=== PATIENT | male | born 2000 | race Hispanic/Latino ===

== ENCOUNTER → 2023-06-30 | Emergency (ER) | payer BC ==
[~2023-06-30] MED LIST: FAMOTIDINE 20 MG/2 ML VIAL IV ONE; KETOROLAC 30 MG/ML INJ ONE; NA CHLORIDE 0.9% 1,000 ML ONE; ONDANSETRON 4 MG/2 ML VIAL ONE
--- OUTSIDE RECORDS SUMMARY | 2023-06-30 18:09 | XMS REPORT | Continuity of Care Document ---
Author Name Unknown Address [address] [facility] [address] [place] [address] [facility] Address [address] [facility]. 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
--- NOTE | 2023-06-30 19:11 | RAD REPORT ---
EXAM DESCRIPTION: US - Abdomen Exam Limited - 06/30/2023 6:57 pm CLINICAL HISTORY: Abdominal pain. COMPARISON: None. FINDINGS: The gallbladder wall is not thickened. A gallstone is not seen. The biliary tree is normal caliber. The liver has an increased echotexture presumably fatty infiltration IMPRESSION: Unremarkable gallbladder ultrasound.
[2023-06-30 19:54] LABS: Absolute Lymphocytes (CBC) 2.1 K/uL (0.7-4.9); Hematocrit 42.7 % (39.6-49.0); Lymphocytes % 49.4 % (15.3-44.8); MCV 88.8 fL (80-100); MPV 8.7 fL (7.6-11.3); Platelets 209 thou/uL (152-406)
[2023-06-30 20:12] LABS: Albumin 3.5 g/dL (3.4-5.0); Bilirubin Total 0.3 mg/dL (0.2-1.0); Potassium 3.6 mEq/L (3.5-5.1); Protein, Total 7.5 g/dL (6.4-8.2)
--- NOTE | 2023-06-30 20:35 | EDPHYS ---
Physician Documentation [facility] Name: Neftali Min Age: 23 yrs Sex: Male : 2000 Arrival Date: 06/30/2023 Time: 18:07 Bed 9 Private MD: ED Physician Khalif Alvarez HPI: 06/30 20:33 This 23 yrs old Male presents to ER via Ambulatory with complaints of Fever, kb Vomiting. 20:33 Patient is a 23-year-old male with upper abdominal pain, nausea, vomiting x 2 today and kb subjective fever for 3 days. Denies diarrhea.. Historical: - Allergies: 18:29 No Known Allergies; bp - Home Meds: 18:29 None [Active]; bp - PMHx: 18:29 None; bp - Immunization history:: Adult Immunizations up to date. - Social history:: Smoking status: Patient denies any tobacco usage or history of. ROS: 20:33 Respiratory: Negative for shortness of breath, cough, wheezing, and pleuritic chest kb pain, 20:33 Constitutional: Positive for fever, 20:33 Abdomen/GI: Positive for abdominal pain, nausea and vomiting, Negative for diarrhea, 20:33 All other systems are negative, Exam: 20:33 Constitutional: This is a well developed, well nourished patient who is awake, alert, kb and in no acute distress. Head/Face: Normocephalic, atraumatic. ENT: Moist Mucous membranes Cardiovascular: Regular rate Respiratory: Respirations even and unlabored. No increased work of breathing. Talking in full sentences Skin: Warm, dry with normal turgor. Normal color. MS/ Extremity: Pulses equal, no cyanosis. Neurovascular intact. Full, normal range of motion. Neuro: Awake and alert, GCS 15, oriented to person, place, time, and situation. Moves all extremities. Normal gait. 20:33 Abdomen/GI: Inspection: abdomen appears normal, Bowel sounds: normal, Palpation: soft, in all quadrants, mild abdominal tenderness, in the right upper quadrant and left upper quadrant, Vital Signs: 18:28 BP 138 / 71; Pulse 86; Resp 16; Temp 98.2; Pulse Ox 99% ; Weight 113.4 kg; Height 5 ft. bp 5 in. ; 20:30 BP 140 / 75; Pulse 82; Resp 17 S; Pulse Ox 99% on R/A; jw7 18:28 Body Mass Index 41.60 (113.40 kg, 165.1 cm) bp MDM: 18:11 Patient medically screened. kb 20:33 Differential diagnosis: Cholecystitis, cholelithiasis, GERD, pancreatitis. Data kb reviewed: vital signs, nurses notes. Counseling: I had a detailed discussion with the patient and/or guardian regarding the historical points, exam findings, and any diagnostic results supporting the discharge/admit diagnosis, lab results, radiology results, the need for outpatient follow up, a family practitioner, a post framer, to return to the emergency department if symptoms worsen or persist or if there are any questions or concerns that arise at home. 06/30 18:35 Order name: CBC with Diff; Complete Time: 20:16 kb 06/30 18:35 Order name: CMP; Complete Time: 20:16 kb 06/30 18:35 Order name: Lipase; Complete Time: 20:16 kb 06/30 18:35 Order name: US Abdomen Limited; Complete Time: 19:13 kb 06/30 18:35 Order name: IV Saline Lock; Complete Time: 20:11 kb 06/30 18:35 Order name: Labs collected and sent; Complete Time: 20:11 kb Administered Medications: 20:11 Drug: NS 0.9% IV 1000 ml IV at 1 bolus Per protocol; 1000 mL bolus Route: IV; Rate: 1 jw7 bolus; Site: right antecubital; 20:54 Follow up: Response: No adverse reaction; IV Status: Completed infusion; IV Intake: jw7 1000ml 20:11 Drug: Famotidine IVP 20 mg IVP once; dilute with 10 mL 0.9% NaCl; give over 2 minutes jw7 Route: IVP; Site: right antecubital; 20:54 Follow up: Response: No adverse reaction; Marked relief of symptoms jw7 20:11 Drug: TORadol - Ketorolac IVP 15 mg IVP once Route: IVP; Site: right antecubital; jw7 20:55 Follow up: Response: No adverse reaction; Marked relief of symptoms jw7 20:11 Drug: Ondansetron IVP 4 mg IVP once; over 2 minutes Route: IVP; Site: right antecubital;jw7 20:54 Follow up: Response: No adverse reaction; Marked relief of symptoms jw7 Disposition: 20:24 I was immediately available on-site in the Emergency Department for consultation in the ms3 care of the patient. Disposition Summary: 06/30/23 20:35 Discharge Ordered Notes: Location: Home kb Condition: Stable kb Diagnosis - Upper abdominal pain, unspecified kb - Abnormal results of liver function studies kb Followup: kb - With: Emergency Department - When: As needed - Reason: Worsening of condition Followup: kb - With: Private Physician - When: 2 - 3 days - Reason: Recheck today's complaints, Continuance of care, Re-evaluation by your physician Discharge Instructions: - Discharge Summary Sheet kb - Gastroesophageal Reflux Disease, Adult kb - Abdominal Pain, Adult, [id number] kb Forms: - Medication Reconciliation Form kb - Thank You Letter kb - Antibiotic Education kb - Prescription Opioid Use kb - Patient Portal Instructions kb - Leadership Thank You Letter kb - Work release form jw7 Prescriptions: - Protonix 40 mg Oral Tablet - take 1 tablet ORAL route once daily; 30 tablet; Refills: 0, Product Selection kb Permitted Signatures: Dispatcher [employer] Trice Cuellar, GUEST RELATIONS EXECUTIVE-C GUEST RELATIONS EXECUTIVE-Rickie Duran, RN RN Khalif Hardwick, DO DO ms3 Annabel Christy RN RN jw7
--- NOTE | 2023-06-30 20:35 | ER ---
Nurse's Notes [facility] Name: Neftali Min Age: 23 yrs Sex: Male : 2000 Arrival Date: 06/30/2023 Time: 18:07 Bed 9 Private MD: Diagnosis: Upper abdominal pain, unspecified;Abnormal results of liver function studies Presentation: 06/30 18:28 Chief complaint: Patient states: 2 DAYS ABDOMINAL PAIN AND POTTER, FEVER Y/D. Coronavirus bp screen: At this time, the client does not indicate any symptoms associated with coronavirus-19. Ebola Screen: No symptoms or risks identified at this time. Initial Sepsis Screen: Does the patient meet any 2 criteria? No. Patient's initial sepsis screen is negative. Does the patient have a suspected source of infection? No. Patient's initial sepsis screen is negative. Risk Assessment: Do you want to hurt yourself or someone else? Patient reports no desire to harm self or others. Onset of symptoms is unknown. 18:28 Method Of Arrival: Ambulatory bp 18:28 Acuity: LARRY 3 bp Triage Assessment: 18:29 General: Appears in no apparent distress. Behavior is calm, cooperative, appropriate bp for age. Pain: Denies pain. GI: Reports nausea, vomiting. Historical: - Allergies: 18:29 No Known Allergies; bp - Home Meds: 18:29 None [Active]; bp - PMHx: 18:29 None; bp - Immunization history:: Adult Immunizations up to date. - Social history:: Smoking status: Patient denies any tobacco usage or history of. Screenin:09 [facility] ED Fall Risk Assessment (Adult) History of falling in the last 3 months, jw7 including since admission No falls in past 3 months (0 pts) Score/Fall Risk Level 0 - 2 = Low Risk Oriented to surroundings, Maintained a safe environment. Abuse screen: Denies threats or abuse. Denies injuries from another. Nutritional screening: No deficits noted. Tuberculosis screening: No symptoms or risk factors identified. Assessment: 20:09 Reassessment: Patient appears in no apparent distress at this time. No changes from jw7 previously documented assessment. Patient and/or family updated on plan of care and expected duration. Pain level reassessed. Patient is alert, oriented x 3, equal unlabored respirations, skin warm/dry/pink. GI: Abdomen is round non-distended. 20:54 Reassessment: Patient appears in no apparent distress at this time. Patient and/or jw7 family updated on plan of care and expected duration. Pain level reassessed. Patient is alert, oriented x 3, equal unlabored respirations, skin warm/dry/pink. Patient states symptoms have improved. Vital Signs: 18:28 BP 138 / 71; Pulse 86; Resp 16; Temp 98.2; Pulse Ox 99% ; Weight 113.4 kg; Height 5 ft. bp 5 in. ; 20:30 BP 140 / 75; Pulse 82; Resp 17 S; Pulse Ox 99% on R/A; jw7 18:28 Body Mass Index 41.60 (113.40 kg, 165.1 cm) bp ED Course: 18:08 Patient arrived in ED. rg4 18:10 Trice Mercedes FNP-C is [facility]. kb 18:10 Khalif Alvarez DO is Attending Physician. kb 18:29 Triage completed. bp 18:29 Arm band placed on. bp 18:59 US Abdomen Limited In Process Unspecified. EDMS 19:08 Annabel Christy, RN is Primary Nurse. jw7 19:45 Initial lab(s) drawn, by ED staff, sent to lab. Inserted saline lock: 20 gauge in right jw7 antecubital area, using aseptic technique. Blood collected. 20:09 Patient has correct armband on for positive identification. Bed in low position. Call jw7 light in reach. Side rails up X 1. 20:11 No provider procedures requiring assistance completed. jw7 20:55 Provided Education on: discharge instructions. jw7 20:55 IV discontinued, intact, bleeding controlled, No redness/swelling at site. Pressure jw7 dressing applied. Administered Medications: 20:11 Drug: NS 0.9% IV 1000 ml IV at 1 bolus Per protocol; 1000 mL bolus Route: IV; Rate: 1 jw7 bolus; Site: right antecubital; 20:54 Follow up: Response: No adverse reaction; IV Status: Completed infusion; IV Intake: jw7 1000ml 20:11 Drug: Famotidine IVP 20 mg IVP once; dilute with 10 mL 0.9% NaCl; give over 2 minutes jw7 Route: IVP; Site: right antecubital; 20:54 Follow up: Response: No adverse reaction; Marked relief of symptoms jw7 20:11 Drug: TORadol - Ketorolac IVP 15 mg IVP once Route: IVP; Site: right antecubital; jw7 20:55 Follow up: Response: No adverse reaction; Marked relief of symptoms jw7 20:11 Drug: Ondansetron IVP 4 mg IVP once; over 2 minutes Route: IVP; Site: right antecubital;jw7 20:54 Follow up: Response: No adverse reaction; Marked relief of symptoms jw7 Medication: 20:11 VIS not applicable for this client. jw7 Intake: 20:54 IV: 1000ml; Total: 1000ml. jw7 Outcome: 20:35 Discharge ordered by . jamal 20:55 Discharged to home ambulatory, jw7 20:55 Condition: stable 20:55 Discharge instructions given to patient, Instructed on discharge instructions, follow up and referral plans. medication usage, Demonstrated understanding of instructions, follow-up care, medications, Prescriptions given X 1, 20:56 Patient left the ED. jw7 Signatures: Dispatcher [employer] EDMS Trice Mercedes, NESTOR-C TRAUMA DIRECTOR-Marifer Foster rg4 Rickie Colon, RN RN Annabel Moon RN RN jw7
[2023-06-30 21:53] VITALS: BP 140/75; TEMP 98.2; O2SAT 99
== END ==
LOC: ER 18:07
DX: R10.11 Right upper quadrant pain (principal); R94.5 Abnormal results of liver function studies; R10.12 Left upper quadrant pain; R50.9 Fever, unspecified
CPT/HCPCS: 85025; 36415; 83690; 80053; 76705; J2405; J7030; 96361; 96374; 96375; 99284

== ENCOUNTER 2024-01-06 16:05 | Emergency (ER) | payer BC ==
--- OUTSIDE RECORDS SUMMARY | 2024-01-06 16:09 | XMS REPORT | Continuity of Care Document ---
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
[2024-01-06] MEDS ORDERED: ONDANSETRON 4 MG/2 ML VIAL ONE (16:55)
[2024-01-06] MEDS ORDERED: NA CHLORIDE 0.9% 1,000 ML ONE (16:55)
[2024-01-06 17:39] LABS: Albumin 3.9 g/dL (3.4-5.0); Albumin/Globulin Ratio 1.1 (1.1-1.8); Anion Gap 7.7 mEq/L (5.0-15.0); Bilirubin Total 0.3 mg/dL (0.2-1.0); Globulin 3.5 g/dL (2.3-3.5); Potassium 3.7 mEq/L (3.5-5.1); Protein, Total 7.4 g/dL (6.4-8.2)
[2024-01-06 17:51] LABS: Absolute Eosinophils 0.1 K/uL (0-0.5); Absolute Lymphocytes (CBC) 2.8 K/uL (0.7-4.9); Absolute Monocytes 0.9 K/uL (0.1-1.3); Absolute Neutrophil 2.5 K/uL (1.8-8.0); Basophils % 0.6 % (0-1.3); Eosinophils % 2.2 % (0-4.4); Hematocrit 43.8 % (39.6-49.0); Hemoglobin 15.1 g/dL (13.6-17.9); Lymphocytes % 43.8 % (15.3-44.8); MCH 30.9 pg (27.0-35.0); MCHC 34.4 g/dL (32.0-36.0); MCV 89.9 fL (80-100); MPV 9.2 fL (7.6-11.3); Monocytes % 14.2 % (3.3-12.3); Neutrophils % 39.2 % (41.7-73.7); Nucleated Red Blood Cells % 0.1 % (0-0); Platelets 275 thou/uL (152-406); RBC Red Blood Cell Count 4.88 M/uL (4.33-5.43); Red Cell Distribution Width 12.6 % (12.1-15.2)
--- NOTE | 2024-01-06 18:09 | ER ---
Nurse's Notes [facility] Name: Neftali Min Age: 23 yrs Sex: Male : 2000 Arrival Date: 01/06/2024 Time: 16:05 Bed 13 Private MD: Diagnosis: Diarrhea, unspecified;Nausea with vomiting, unspecified Presentation: 01/05 16:13 Chief complaint: Patient states: Diarrhea, N/V started this AM. No fever. Coronavirus ll1 screen: Client denies travel out of the [place] in the last 14 days. At this time, the client does not indicate any symptoms associated with coronavirus-19. Ebola Screen: Patient denies travel to an Ebola-affected area in the 21 days before illness onset. Initial Sepsis Screen: Does the patient meet any 2 criteria? No. Patient's initial sepsis screen is negative. Does the patient have a suspected source of infection? No. Patient's initial sepsis screen is negative. Risk Assessment: Do you want to hurt yourself or someone else? Patient reports no desire to harm self or others. Onset of symptoms was January 06, 2024. 16:13 Method Of Arrival: Ambulatory ll1 16:13 Acuity: LARRY 3 ll1 Triage Assessment: 16:17 General: Appears uncomfortable, Behavior is calm, cooperative, appropriate for age. ll1 Pain: Denies pain. GI: Reports diarrhea, nausea, vomiting. Historical: - Allergies: 16:15 No Known Allergies; ll1 - Home Meds: 16:15 None [Active]; ll1 - PMHx: 16:15 None; ll1 - PSHx: 16:15 None; ll1 - Immunization history:: Adult Immunizations up to date. - Infectious Disease History:: Denies. - Social history:: Smoking status: Patient denies any tobacco usage or history of. Screenin:05 [facility] ED Fall Risk Assessment (Adult) History of falling in the last 3 months, mb9 including since admission No falls in past 3 months (0 pts) Confusion or Disorientation No (0 pts) Intoxicated or Sedated No (0 pts) Impaired Gait No (0 pts) Mobility Assist Device Used No (0 pt) Altered Elimination No (0 pt) Score/Fall Risk Level 0 - 2 = Low Risk Oriented to surroundings, Maintained a safe environment, Educated pt \T\ family on fall prevention, incl call for assistance when getting out of bed. Abuse screen: Denies threats or abuse. Nutritional screening: No deficits noted. Tuberculosis screening: No symptoms or risk factors identified. Assessment: 17:06 General: Appears in no apparent distress. Behavior is calm, cooperative. Pain: Denies mb9 pain. Neuro: Seals Agitation-Sedation Scale (RASS): 0 - Alert and Calm Level of Consciousness is awake, alert, obeys commands, Oriented to person, place, time, situation, Appropriate for age. Cardiovascular: Patient's skin is warm and dry. Respiratory: Airway is patent Respiratory effort is even, unlabored, Respiratory pattern is regular, symmetrical. GI: Abdomen is round non-distended, Bowel sounds present X 4 quads. Abd is soft and non tender X 4 quads. Reports diarrhea, nausea, vomiting. : No signs and/or symptoms were reported regarding the genitourinary system. EENT: No signs and/or symptoms were reported regarding the EENT system. Derm: Skin is pink, warm \T\ dry. Musculoskeletal: Range of motion: intact in all extremities. 18:06 Reassessment: No changes from previously documented assessment. Patient and/or family mb9 updated on plan of care and expected duration. Pain level reassessed. Patient is alert, oriented x 3, equal unlabored respirations, skin warm/dry/pink. Vital Signs: 16:13 BP 139 / 86; Pulse 70; Resp 16; Temp 97.2; Pulse Ox 99% on R/A; Weight 104.33 kg; ll1 Height 5 ft. 5 in. ; Pain 0/10; 18:06 BP 111 / 71; Pulse 74; Resp 18; Pulse Ox 98% on R/A; mb9 16:13 Body Mass Index 38.27 (104.33 kg, 165.1 cm) ll1 16:13 Pain Scale: Adult ll1 ED Course: 16:09 Patient arrived in ED. mg5 16:10 Trice Mercedes FNP-C is PHCP. kb 16:10 Riley Sanchez MD is Attending Physician. kb 16:10 Arm band placed on. ll1 16:15 Triage completed. ll1 16:53 Nadya Dobbins RN is Primary Nurse. mb9 17:05 Placed in gown. Bed in low position. Call light in reach. Side rails up X 1. Provided mb9 Education on: press call light if needing anything. Client placed on continuous cardiac and pulse oximetry monitoring. NIBP monitoring applied. 17:05 Initial lab(s) drawn, by me, sent to lab. Inserted saline lock: 20 gauge in right mb9 antecubital area, using aseptic technique. Blood collected. 17:07 No provider procedures requiring assistance completed. mb9 18:17 IV discontinued, intact, bleeding controlled, No redness/swelling at site. Pressure mb9 dressing applied. Administered Medications: 17:06 Drug: NS 0.9% IV 1000 ml IV at 1 bolus Per protocol; 1000 mL bolus Route: IV; Rate: 1 mb9 bolus; Site: right antecubital; 18:10 Follow up: Response: No adverse reaction; IV Status: Completed infusion mb9 17:06 Drug: Ondansetron IVP 4 mg IVP once; over 2 minutes Route: IVP; Site: right antecubital;mb9 17:37 Follow up: Response: No adverse reaction mb9 Medication: 17:06 VIS not applicable for this client. mb9 Outcome: 18:08 Discharge ordered by MD. berry 18:17 Discharged to home ambulatory, with family, mb9 18:17 Condition: stable 18:17 Discharge instructions given to patient, family, Instructed on discharge instructions, follow up and referral plans. Demonstrated understanding of instructions, follow-up care, medications, Prescriptions given X 1, 18:17 Patient left the ED. mb9 Signatures: Trice Mercedes FNP-C FNP-Zabrina Downey RN RN ll1 Nadya Dobbins RN RN mb9 Caitlin Martin mg5
--- NOTE | 2024-01-06 18:09 | EDPHYS ---
Physician Documentation [facility] Name: Neftali Min Age: 23 yrs Sex: Male : 2000 Arrival Date: 01/06/2024 Time: 16:05 Bed 13 Private MD: ED Physician Riley Sanchez HPI: 01/05 16:24 This 23 yrs old Male presents to ER via Ambulatory with complaints of kb Abdominal Pain, Vomiting. 16:24 Patient is a 23-year-old male who presents for diarrhea x 5 episodes today with 1 kb episode of vomiting just prior to arrival. States symptoms started at 540 this morning. Denies abdominal pain or fever.. Historical: - Allergies: 16:15 No Known Allergies; ll1 - Home Meds: 16:15 None [Active]; ll1 - PMHx: 16:15 None; ll1 - PSHx: 16:15 None; ll1 - Immunization history:: Adult Immunizations up to date. - Infectious Disease History:: Denies. - Social history:: Smoking status: Patient denies any tobacco usage or history of. ROS: 16:24 Constitutional: As per HPI kb Exam: 16:24 Constitutional: This is a well developed, well nourished patient who is awake, alert, kb and in no acute distress. Head/Face: Normocephalic, atraumatic. ENT: Moist Mucous membranes Cardiovascular: Regular rate Respiratory: Respirations even and unlabored. No increased work of breathing. Talking in full sentences Abdomen/GI: Soft, non-tender. No distention Skin: Warm, dry with normal turgor. Normal color. MS/ Extremity: Pulses equal, no cyanosis. Neurovascular intact. Full, normal range of motion. Neuro: Awake and alert, GCS 15, oriented to person, place, time, and situation. Moves all extremities. Normal gait. Vital Signs: 16:13 BP 139 / 86; Pulse 70; Resp 16; Temp 97.2; Pulse Ox 99% on R/A; Weight 104.33 kg; ll1 Height 5 ft. 5 in. ; Pain 0/10; 18:06 BP 111 / 71; Pulse 74; Resp 18; Pulse Ox 98% on R/A; mb9 16:13 Body Mass Index 38.27 (104.33 kg, 165.1 cm) ll1 16:13 Pain Scale: Adult ll1 MDM: 16:10 Patient medically screened. kb 18:07 Data reviewed: vital signs, nurses notes. kb 18:07 Differential diagnosis: gastritis, non-specific abd pain, viral gastroenteritis. Test kb considered but Not performed: CT: ct abd considered but pt has no abd pain or tenderness. Counseling: I had a detailed discussion with the patient and/or guardian regarding the historical points, exam findings, and any diagnostic results supporting the discharge/admit diagnosis, lab results, the need for outpatient follow up, a family practitioner, to return to the emergency department if symptoms worsen or persist or if there are any questions or concerns that arise at home. 01/05 16:15 Order name: CBC with Diff; Complete Time: 18:07 kb 01/05 16:15 Order name: CMP; Complete Time: 17:40 kb 01/05 16:15 Order name: Lipase; Complete Time: 17:40 kb 01/05 16:15 Order name: IV Saline Lock; Complete Time: 17:06 kb 01/05 16:15 Order name: Labs collected and sent; Complete Time: 17:06 kb Administered Medications: 17:06 Drug: NS 0.9% IV 1000 ml IV at 1 bolus Per protocol; 1000 mL bolus Route: IV; Rate: 1 mb9 bolus; Site: right antecubital; 18:10 Follow up: Response: No adverse reaction; IV Status: Completed infusion mb9 17:06 Drug: Ondansetron IVP 4 mg IVP once; over 2 minutes Route: IVP; Site: right antecubital;mb9 17:37 Follow up: Response: No adverse reaction mb9 Disposition: 19:01 Co-signature as Attending Physician, Riley Sanchez MD I reviewed the patient's care rt provided by the Advanced Practice Provider and agree with the diagnosis and treatment plan. Disposition Summary: 01/06/24 18:08 Discharge Ordered Notes: Location: Home kb Condition: Stable kb Diagnosis - Diarrhea, unspecified kb - Nausea with vomiting, unspecified kb Followup: kb - With: Emergency Department - When: As needed - Reason: Worsening of condition Followup: kb - With: Private Physician - When: 2 - 3 days - Reason: Recheck today's complaints, Continuance of care, Re-evaluation by your physician Discharge Instructions: - Food Choices to Help Relieve Diarrhea, Adult kb - Viral Gastroenteritis, Adult, [id number] kb - Discharge Summary Sheet ll1 Forms: - Medication Reconciliation Form kb - Antibiotic Education kb - Prescription Opioid Use kb - Patient Portal Instructions kb - Leadership Thank You Letter kb - Work release form ll1 Prescriptions: - Zofran 4 mg Oral tablet - take 1 tablet ORAL route every 6 hours As needed; 12 tablet; Refills: 0, kb Product Selection Permitted Signatures: Dispatcher [employer] EDTrice Li, NESTOR-C NET MANAGER-Zabrina Downey RN RN ll1 Nadya Dobbins RN RN mb9 Riley Sanchez MD MD rt
[2024-01-06 19:31] VITALS: BP 111/71; TEMP 97.2; O2SAT 98
== END 2024-01-06 18:17 | disposition home or self-care (01) ==
LOC: ER 16:05
DX: R19.7 Diarrhea, unspecified (principal); R11.2 Nausea with vomiting, unspecified
CPT/HCPCS: 96361; 85025; 36415; 83690; 80053; 96374; 99284; J2405; J7030

== ENCOUNTER 2024-09-12 06:21 | Emergency (ER) | payer BC ==
--- OUTSIDE RECORDS SUMMARY | 2024-09-12 06:24 | XMS REPORT | Continuity of Care Document ---
Author Name Unknown Address [address] [facility] [address] [place] [address] [facility] Address [address] [facility] [address] [place] [address] Care Team Providers Care Home Health Clinician Name Role Phone RAMANA VAUGHAN Attending Clinician Unavail able Social History Smoking Status Start Date Stop Date Source Never Smoker [facility] Vital Signs Vital Name Observation Time Observation Value Comments S ource Height 2024-05-22 00:00:00 65 [in_i] [facility] BP Diastolic 2024-05-22 00:00:00 63 mm[Hg] [facility] BP Systolic 2024-05-22 00:00:00 118 mm[Hg] [facility] BMI (Body Mass Index) 2024-05-22 00:00:00 41.1 kg/m2 [facility] Body Weight 2024-05-22 00:00:00 3955 [oz_av] [facility] Encounters Start Date/Time End Date/Time Encounter Type Admission Type Attending Clinicians Care Facility Care Department Encounter ID Source 2024-05-22 00:00:00 2024-05-22 00:00:00 Michelle Ma PA-C: [address] [facility], [address], [place] [address] , Ph. [facility] [id number] [facility] 2019-12-13 19:11:00 2019-12-13 21:43:00 Emergency [facility] [address] [facility]
[2024-09-12 07:30] LABS: Specific Gravity 1.028 (1.005-1.030); Sqamous Epithelial None Seen /HPF (None Seen); Urine Bacteria None Seen /HPF (<20); Urine Bilirubin NEGATIVE (Negative); Urine Blood Negative (Negative); Urine Clarity Clear (Clear); Urine Color Light-Yellow (Yellow); Urine Culture Reflex Order NOT NEEDED; Urine Glucose NEGATIVE (Negative); Urine Ketones NEGATIVE (Negative); Urine Micro Reflex YN NO BILL MICROSCOPIC; Urine Nitrite NEGATIVE (Negative); Urine Protein NEGATIVE (Negative); Urine RBC <5 /HPF (None Seen); Urine Urobilinogen Normal (Normal); Urine WBC None Seen /HPF (<5); Urine pH 5.5 (5.0-7.0)
--- NOTE | 2024-09-12 08:08 | RAD REPORT ---
EXAMINATION: ULTRASOUND DUPLEX OF SCROTUM AND TESTICLES CLINICAL INDICATION: Male, 24 years, testicular pain TECHNIQUE: Duplex scan of the scrotal contents was performed including real-time color and spectral D oppler ultrasonography with arterial inflow and venous outflow. COMPARISON: No prior exam. FINDINGS: RIGHT TESTICLE AND EPIDIDYMIS: The right testicle is normal in size, measuring 4.7 x 3.6 x 2.5 cm. Normal, homogeneous echotexture with no focal lesion seen. The right epididymis is normal. Color Doppler flow in the right testicle is normal. LEFT TESTICLE AND EPIDIDYMIS: The left testicle is normal in size, measuring 4.5 x 3.1 x 2.5 cm. Normal, homogeneous echotexture with no focal lesion seen. The left epididymis is normal. Color Doppler flow in the left testicle is normal. ADDITIONAL FINDINGS: None. IMPRESSION: No acute or significant abnormalities.
--- NOTE | 2024-09-12 08:26 | EDPHYS ---
Physician Documentation [facility] Name: Neftali Min Age: 24 yrs Sex: Male : 2000 Arrival Date: 09/12/2024 Time: 06:21 Bed 6 Private MD: ED Physician Khalif Alvarez HPI: 09/12 09:31 This 24 yrs old Male presents to ER via Ambulatory with complaints of ms3 Testicular Lump. 09:31 24-year-old male with no past medical history presents to the emergency department ms3 after feeling a lump on his left testicle last night. Patient states on waking up this morning the lump is no longer present. Patient denies pain. Patient denies any penile discharge. Patient states he is monogamous with his .. Historical: - Allergies: 07:14 No Known Allergies; bp - Home Meds: 07:14 None [Active]; bp - PMHx: 07:14 None; bp - Immunization history:: Adult Immunizations up to date. - Infectious Disease History:: Denies. - Social history:: Smoking status: Patient denies any tobacco usage or history of. ROS: 09:31 Constitutional: Negative for fever, and chills. Cardiovascular: Negative for chest ms3 pain, and palpitations. Respiratory: Negative for shortness of breath, cough, wheezing, and pleuritic chest pain, Abdomen/GI: Negative for abdominal pain, nausea, vomiting, diarrhea, and constipation, 09:31 : Positive for Mass on left testicle, Negative for urinary symptoms, urinary frequency, penile discharge, Exam: 09:31 Constitutional: This is a well developed, well nourished patient who is awake, alert, ms3 and in no acute distress. Cardiovascular: Regular rate and rhythm with a normal S1 and S2. No gallops, murmurs, or rubs. Normal PMI, no JVD. No pulse deficits. Respiratory: Lungs have equal breath sounds bilaterally, clear to auscultation and percussion. No rales, rhonchi or wheezes noted. No increased work of breathing, no retractions or nasal flaring. Abdomen/GI: Soft, non-tender, with normal bowel sounds. No distension or tympany. No guarding or rebound. No evidence of tenderness throughout. 09:31 : Male external genitalia: normal, cremasteric reflex present right, present left, erythema, is absent, penile discharge, is absent, swelling: is not appreciated, tenderness, is not appreciated, Vital Signs: 07:13 BP 121 / 78; Pulse 91; Resp 16; Temp 98; Pulse Ox 98% ; bp 08:02 BP 115 / 70; Pulse 85; Resp 16; Pulse Ox 96% ; bp MDM: 06:32 Medical Screening Exam initiated sp3 09:31 Differential diagnosis: Testicular torsion versus testicular cancer versus hernia. Data ms3 reviewed: vital signs, nurses notes, lab test result(s), radiologic studies, and as a result, I will discharge patient. Counseling: I had a detailed discussion with the patient and/or guardian regarding the historical points, exam findings, and any diagnostic results supporting the discharge/admit diagnosis, lab results, radiology results, the need for outpatient follow up, to return to the emergency department if symptoms worsen or persist or if there are any questions or concerns that arise at home. Special discussion: I discussed with the patient/guardian in detail that at this point there is no indication for admission to the hospital. It is understood, however, that if the symptoms persist or worsen the patient needs to return immediately for re-evaluation. ED course: Discussed normal ultrasound and negative urinalysis with the patient. Patient to follow-up with Dr. Raines in 2 to 3 days. Patient understands and agrees with plan. All questions were answered. Return precautions discussed include worsening symptoms, or any other concerns. On reevaluation patient is alert and oriented x 4, no apparent distress, nontoxic-appearing, speaking full sentences, symptoms have resolved.. 09/12 06:33 Order name: UAM; Complete Time: 07:31 sp3 09/12 06:33 Order name: Scrotum Testicles US; Complete Time: 08:12 sp3 Administered Medications: No medications were administered Disposition Summary: 09/12/24 08:26 Discharge Ordered Notes: Location: Home ms3 Condition: Stable ms3 Diagnosis - Testicular concern ms3 - Testicular mass- unfounded ms3 Followup: ms3 - With: Anil Raines MD - When: 2 - 3 days - Reason: Recheck today's complaints Discharge Instructions: - Discharge Summary Sheet ms3 - Testicular Self-Exam ms3 Forms: - Medication Reconciliation Form ms3 - Antibiotic Education ms3 - Prescription Opioid Use ms3 - Patient Portal Instructions ms3 - Leadership Thank You Letter ms3 Signatures: Dispatcher [employer] Rickie Nevarez, Khalif Perez RN, DO DO ms3 Loida Silveira MD MD sp3
--- NOTE | 2024-09-12 08:26 | ER ---
Nurse's Notes [facility] Name: Neftali Min Age: 24 yrs Sex: Male : 2000 Arrival Date: 09/12/2024 Time: 06:21 Bed 6 Private MD: Diagnosis: Testicular concern;Testicular mass- unfounded Presentation: 09/12 07:13 Chief complaint: Patient states: NOTICED LUMP ON LEFT TESTICLE. Coronavirus screen: At bp this time, the client does not indicate any symptoms associated with coronavirus-19. Ebola Screen: No symptoms or risks identified at this time. Initial Sepsis Screen: Does the patient meet any 2 criteria? No. Patient's initial sepsis screen is negative. Does the patient have a suspected source of infection? No. Patient's initial sepsis screen is negative. Risk Assessment: Do you want to hurt yourself or someone else? Patient reports no desire to harm self or others. Onset of symptoms is unknown. 07:13 Method Of Arrival: Ambulatory bp 07:13 Acuity: LARRY 3 bp Triage Assessment: 07:14 General: Appears in no apparent distress. Behavior is calm, cooperative, appropriate bp for age. Pain: Denies pain. EENT: No deficits noted. Neuro: No deficits noted. Cardiovascular: No deficits noted. Respiratory: No deficits noted. GI: No deficits noted. : Reports LEFT TESTICLE LUMP. Derm: No deficits noted. Musculoskeletal: No deficits noted. Historical: - Allergies: 07:14 No Known Allergies; bp - Home Meds: 07:14 None [Active]; bp - PMHx: 07:14 None; bp - Immunization history:: Adult Immunizations up to date. - Infectious Disease History:: Denies. - Social history:: Smoking status: Patient denies any tobacco usage or history of. Screenin:15 [facility] ED Fall Risk Assessment (Adult) History of falling in the last 3 months, bp including since admission No falls in past 3 months (0 pts) Confusion or Disorientation No (0 pts) Intoxicated or Sedated No (0 pts) Impaired Gait No (0 pts) Mobility Assist Device Used No (0 pt) Altered Elimination No (0 pt) Score/Fall Risk Level 0 - 2 = Low Risk Oriented to surroundings. Abuse screen: Denies threats or abuse. Denies injuries from another. Nutritional screening: No deficits noted. Tuberculosis screening: No symptoms or risk factors identified. Assessment: 07:15 General: Appears in no apparent distress. Behavior is calm, cooperative, appropriate bp for age. 08:03 Reassessment: No changes from previously documented assessment. Patient is alert, bp oriented x 3, equal unlabored respirations, skin warm/dry/pink. Vital Signs: 07:13 BP 121 / 78; Pulse 91; Resp 16; Temp 98; Pulse Ox 98% ; bp 08:02 BP 115 / 70; Pulse 85; Resp 16; Pulse Ox 96% ; bp ED Course: 06:23 Patient arrived in ED. [id number] 07:00 Scrotum Testicles US In Process Unspecified. EDMS 07:05 Khalif Alvarez DO is Attending Physician. ms3 07:05 Rickie Colon, RN is Primary Nurse. bp 07:14 Triage completed. bp 07:14 Arm band placed on. bp 07:15 Patient has correct armband on for positive identification. bp 08:25 Anil Raines MD is Referral Physician. ms3 08:44 No provider procedures requiring assistance completed. Patient did not have IV access bp during this emergency room visit. Administered Medications: No medications were administered Medication: 07:15 VIS not applicable for this client. bp Outcome: 08:26 Discharge ordered by . ms3 08:44 Discharged to home ambulatory, bp 08:44 Condition: stable 08:44 Discharge instructions given to patient, Instructed on discharge instructions, follow up and referral plans. Demonstrated understanding of instructions, follow-up care, 08:44 Patient left the ED. bp Signatures: Dispatcher [employer] EDMS Rickie Colon, RN RN bp Khalif Alvarez DO DO ms3 Joselin Davison [email or web address]
[2024-09-12 08:49] VITALS: TEMP 98
[2024-09-12 08:50] VITALS: BP 115/70; O2SAT 96
== END 2024-09-12 08:44 | disposition home or self-care (01) ==
LOC: ER 06:21
DX: Z71.1 Person with feared health complaint in whom no diagnosis is made (principal)
CPT/HCPCS: 76870; 81001